=== PATIENT | male | born 1975 | race Caucasian/White ===

== ENCOUNTER → 2017-11-25 11:33 | Outpatient (CLI) | payer BC, SELFPAY ==
--- NOTE | 2017-11-25 11:44 | MR_ITS ---
MR head/brain wo con HISTORY: Left-sided arm and facial tingling and numbness with facial drooping ITS.REASON: TRANSIENT CEREBRAL ISCHEMIA, UNSPECIFIED TYPE ORDERING PHYSICIAN: Livier Vargas PATIENT AGE: 42 years COMPARISON: None TECHNIQUE: Standard multiplanar multiecho sequences are performed without contrast. FINDINGS: No midline shift, mass effect, hydrocephalus, or acute intra or extra-axial hemorrhage apparent. There is a small area of increased diffusion signal in the right frontal parietal junction within the cortex consistent with a small area of acute infarction. This is hyperintense on the diffusion weighted images and slightly hypointense on the ADC images. No significant surrounding edema or midline shift. This area measures approximately 4 mm. The chavis-white matter differentiation is unremarkable. The cerebellopontine angles, cerebellum, and brainstem are unremarkable. There is a small amount fluid in left mastoid sinus. IMPRESSION: 1. Small cortical infarction involves the right frontoparietal junction. 2. Left mastoid sinus disease. 3. Otherwise negative MRI of the brain.
== END ==
PROVIDERS: Family Provider Family Medicine; PCP Nurse Practitioner; Visit Provider Nurse Practitioner
DX: G45.9 Transient cerebral ischemic attack, unspecified (principal)
CPT/HCPCS: 70551

== ENCOUNTER → 2017-11-29 08:43 | Outpatient (CLI) | payer BC, SELFPAY ==
--- NOTE | 2017-11-29 08:55 | CI_ITS ---
Cerebrovascular Exam Indications: 435.9 Unspecified transient cerebral ischemia. IMPRESSIONS 1. The bilateral vertebral arteries are patent with normal antegrade flow. 2. Study suggests less than 20% stenosis involving the right internal carotid artery and the left internal carotid artery. History: Risk factors: Current tobacco use. Hyperlipidemia. Carotid duplex study. Complete study and Doppler flow study including spectral analysis, color and chavis scale imaging. Height: Height: 188cm. Height: 74in. Weight: Weight: 102.1kg. Weight: 224.5lb. Body mass index: BMI: 28.9kg/m^2. Body surface area: BSA: 2.33m^2. Location: Vascular laboratory. Patient status: Outpatient. Tables: Arterial flow: + +--------+--------+ Location V sys V ed + +--------+--------+ Right CCA - proximal 99.8cm/s 29.1cm/s + +--------+--------+ Right CCA - distal 76.2cm/s 26.7cm/s + +--------+--------+ Right ECA 87.2cm/s -------- + +--------+--------+ Right ICA - proximal 70.7cm/s 28.3cm/s + +--------+--------+ Right ICA - mid 88cm/s 40.1cm/s + +--------+--------+ Right ICA - distal 85.6cm/s 36.9cm/s + +--------+--------+ Right vertebral 50.3cm/s -------- + +--------+--------+ Left CCA - proximal 104cm/s 38.5cm/s + +--------+--------+ Left CCA - distal 81.7cm/s 33.8cm/s + +--------+--------+ Left ECA 119cm/s -------- + +--------+--------+ Left ICA - proximal 83.3cm/s 26.7cm/s + +--------+--------+ Left ICA - mid 81.7cm/s 33.8cm/s + +--------+--------+ Left ICA - distal 87.2cm/s 41.6cm/s + +--------+--------+ Left vertebral 33.8cm/s -------- + +--------+--------+ Velocity ratios: + + + + + + Right, V sys Right, V ed Left, V sys Left, V ed + + + + + + Max ICA/dist CCA 1.15 1.5 1.07 1.23 + + + + + + (Report amended ) Electronically signed by: Aaron Gross [id number]
--- NOTE | 2017-11-29 09:00 | CA_ITS ---
PROCEDURE: 2-D M-mode and color Doppler study INDICATIONS FOR THE TEST: Chest pain COPD Heart Murmur Tobacco Smoking Palpitations Fatigue Syncope Edema Hypertension Diabetes Mellitus Rheumatic Fever SOB MCLEAN Obesity HyperlipidemiaX Family History HD Additional History TIA PATIENT INFORMATION HEIGHT: 74 WEIGHT:225 GENDER: Male B/P:110/70 2-D/M-MODE INTERPRETATION: 2-D MEASUREMENTS OBSERVED VALUES IN CMS Right Ventricular Dimension (RVDd) 3.1 Interventricular Septum (Thickness)(IVsd) .9 Left Ventricular Internal Dimensions(LVIDd) 4.9 Left Ventricular Posterior Wall (Thickness)(LVPWd) .9 Aortic Root 2.9 Aortic Cusp Separation 2.1 Left Atrial Dimensions (LAD) 4.1 2D 1. Left atrium is normal size, left ventricle is normal size, there is preserved left ventricular systolic function, visually estimated ejection fraction 55% with no obvious regional wall motion abnormality. 2. The right atrium and right ventricle are normal size and contractility. 3. The aortic valve is minimally thickened and fibrosed. 4. The mitral and tricuspid valve are structurally normal. 5. The pulmonic valve is poorly visualized. 6. No significant pericardial effusion noted. DOPPLER INTERROGATION: Doppler interrogation of the aortic, mitral and tricuspid valvular presence of mild mitral and tricuspid regurgitation, tricuspid and jet velocity insufficient for calculation of the right ventricular systolic pressure, diastolic parameters are within normal range. CONCLUSION: 1. Normal left ventricular size, preserved left ventricular systolic function, visually estimated ejection fraction 55% with no obvious regional wall motion abnormality, diastolic parameters are within normal range. 2. Mild mitral and tricuspid regurgitation 3. No significant pericardial effusion noted.
== END ==
PROVIDERS: Family Provider Family Medicine; PCP Nurse Practitioner; Visit Provider Nurse Practitioner
DX: R07.9 Chest pain, unspecified (principal); G45.9 Transient cerebral ischemic attack, unspecified
CPT/HCPCS: 93306; 93880

== ENCOUNTER → 2018-08-18 10:03 | Outpatient (CLI) | payer BC, SELFPAY ==
--- NOTE | 2018-08-18 10:08 | FL_ITS ---
FL upper GI w air HISTORY: ITS.REASON: DYSPHAGIA ORDERING PHYSICIAN: Livier Vargas PATIENT AGE: 43 years Comparison: None FINDINGS: Contour deformity involves the posterior wall of the distal esophagus abdomen and undulated appearance with questionable mucosal irregularity and possible minimal ulceration. The stomach and duodenum have an unremarkable appearance. No evidence of hiatal hernia. There is normal peristalsis. The duodenal C-loop is nondisplaced. FLUOROSCOPY TIME : 2 minutes and 9 seconds. IMPRESSION: 1. Lobular contour defect along the posterior aspect of the distal esophagus with questionable mucosal irregularity. Cannot exclude a lesion here. Consider upper endoscopy for further evaluation. There may be some minimal ulceration here. 2. Otherwise negative upper GI
== END ==
PROVIDERS: PCP Nurse Practitioner; Visit Provider Nurse Practitioner
DX: R13.10 Dysphagia, unspecified (principal)
CPT/HCPCS: 74247

== ENCOUNTER 2022-02-05 19:39 | Emergency (ER) | payer BC, SELFPAY ==
--- NOTE | 2022-02-05 20:16 | XR_ITS ---
PROCEDURE INFORMATION: Exam: XR Left Knee Exam date and time: 02/05/2022 8:22 PM Age: 46 years old Clinical indication: Pain; Knee; Left; Additional info: Injury TECHNIQUE: Imaging protocol: XR Left knee. Views: 3 views. COMPARISON: No relevant prior studies available. FINDINGS: Bones/joints: Normal. No acute fracture or dislocation. Soft tissues: Prepatellar soft tissue swelling. IMPRESSION: Prepatellar soft tissue swelling. No underlying acute fracture or dislocation.
[2022-02-05 21:00] VITALS: BP 111/67; PULSE 97; RESP 21; TEMP 36.9; O2SAT 96; BMI 30.8
--- NOTE | 2022-02-05 21:25 | HMH.EDUTC ---
[facility] [place] Disposition Clinical Impression: Cellulitis Qualifiers: Site of cellulitis: unspecified site Qualified Code(s): L03.90 - Cellulitis, unspecified Disposition: Home, Self-Care Condition on Discharge: Good Instructions: Trimethoprim/Sulfamethoxazole (Alternative Therapy), Cellulitis, Cephalexin, Mupirocin Additional Instructions: *Start antibiotic(s) immediately and be sure to take as ordered for the FULL length of time although you may be feeling better or start to see improvement in the next 24-48 hours *Monitor closely. Outlined redness so that you can monitor easier. Follow up immediately for new or worsening symptoms including but not limited to redness, swelling, streaking from site fever or chills. *Warm compress 15 minutes 3-4 times day *Never squeeze or pop these on your own. Seek immediate medical attention next time this occurs *Monitor Temp. Tylenol every 4 hours as needed and ibuprofen every 6 hours as needed (as long as your primary care doctor has told you that it is ok to take both. For fever, aches, pain. ER if no less that 101 despite Tylenol and ibuprofen Follow up with your family doctor/primary care physician in the next 48-72 hours if no improvement Follow up immediately if redness continues to spread Prescriptions: Sulfamethoxazole/Trimethoprim [Bactrim DS tablet] 1 each PO BID 10 Days #20 tab Transmission Status: Pending to [facility] cephALEXin [cephALEXin 500mg capsule*] 500 mg PO QID 10 Days #40 cap Transmission Status: Pending to [facility] Mupirocin Calcium [Mupirocin 2% Cream 15gm] 1 applicatio TP BID 10 Days #15 gm Transmission Status: Pending to [facility] Referrals: Eliecer Merritt MD [Primary Care Provider] - As needed Time of Disposition: 21:33 Medical Decision Making - Blade Inquiry Pt receiving controlled substance: No Blade was queried for this patient: No Vital Signs: 02/05/22 21:00 Temperature 98.5 F Temperature Source Oral Pulse Rate [Left Brachial] 97 H Respiratory Rate 21 Blood Pressure [Left Arm] 111/67 Blood Pressure Mean [Left Arm] 81 Blood Pressure Source [Left Arm] Automatic Cuff Blood Pressure Position [Left Arm] Sitting 02 Sat by Pulse Oximetry 96 Oxygen Delivery Method Room Air Orders (Tests/Meds): ED MEDICATIONS Discontinued Medications Generic Name Dose Route Start Last Admin Trade Name Justyn PRN Reason Stop Dose Admin Cephalexin HCl 500 mg 02/05/22 21:31 Cephalexin 500mg Capsule PO 02/05/22 21:32 ONCE ONE Trimethoprim/Sulfamethoxazole 1 each 02/05/22 21:31 Sulfa/Trimethoprim 1 Tablet PO 02/05/22 21:32 ONCE ONE Medical Decision Narrative: Discussed with patient and recommended transfer to the ED for further work up and evaluation and patient declined State that he wanted to try antibiotics and he would follow up immediately if no improvement or go straight to ER area marked and patient verbalized understanding of strict return recommendations [facility] [place] HPI - General Stated complaint: Left knee pain swollen Time Seen by Provider: 02/05/22 21:15 Mode of Arrival: Ambulatory Source of Information: Patient Limitations: No Limitations Description of Symptoms (Recalled from Triage Doc. by RN): PATIENT C/O REDNESS AND PAIN TO LEFT KNEE. HE STATES HE POSSIBLY GOT BIT BY SOMETHING HEENT Symptoms (Recalled from RN notes): No Resp Symptoms (Recalled from RN notes): No Skin Symptoms (Recalled from RN notes): Yes MS Symptoms (Recalled from RN notes): No Functional Status (Recalled from RN notes): WNL - History of Present Illness Provider Complaint: Patient states that he thought he got bite by something on his left knee and had a pimple like area there and he tried to pop it State that since then he has been having redness and warmth and the redness is starting to spread State that he has continued to try to mash it to get stuff out and told him he needed to come and get some ant
[2022-02-05 21:33] VITALS: BP 111/67; PULSE 97; RESP 21; TEMP 36.9; O2SAT 96
== END 2022-02-05 21:40 | disposition home or self-care (01) ==
PROVIDERS: Emergency Provider Nurse Practitioner; PCP Family Medicine
DX: L03.116 Cellulitis of left lower limb (principal)
CPT/HCPCS: 73562; 99212; G0463

== ENCOUNTER 2023-01-03 10:12 | Emergency (ER) | payer BC, SELFPAY ==
[2023-01-03 10:20] VITALS: BP 123/71; PULSE 87; RESP 18; TEMP 36.7; O2SAT 96; BMI 30.2
--- NOTE | 2023-01-03 10:31 | EXP.UTC ---
Discharge Plan Disposition Patient Disposition: Home, Self-Care Condition: Good Prescriptions Prescriptions: New gentamicin 0.3 % drops 1 - 2 drp ophthalmic (eye) Q4H 7 Days Qty: 5 0RF Rx Instructions: in right eye as directed azithromycin [Zithromax Z-Haris] 250 mg tablet See Rx Instructions .ROUTE .COMPLEX 5 Days Qty: 6 0RF Rx Instructions: For 250 mg dose pack: take 500 mg today (day 1), then 250 mg for 4 days (days 2-5) benzonatate 100 mg capsule 100 mg PO TID PRN (Reason: cough) Qty: 30 0RF methylprednisolone [Medrol (Haris)] 4 mg tablets,dose pack See Rx Instructions .Route .COMPLEX 6 Days Qty: 21 0RF Rx Instructions: taper pack; No Action sulfamethoxazole-trimethoprim 1 EACH tablet 1 each PO BID 10 Days Qty: 20 0RF cephalexin 500 MG capsule 500 mg PO QID 10 Days Qty: 40 0RF mupirocin calcium 15 GM cream 1 applicatio TP BID 10 Days Qty: 15 0RF Referrals Follow up/Referrals: Eliecer Merritt MD [Primary Care Provider] - See instructions Activity Restrictions/Add. Instructions Additional Instructions/Restrictions: *Monitor Temp, Over the counter Motrin or Tylenol as directed/as needed Tylenol every 4 hours and Motrin every 6 hours (as long as your family doctor has told you that you can take it) for fever or pain. and straight to ER if unable to lower temp less than 101.0 after medication given *Warm salt water gargles may help to soothe the throat *Throat Lozenges? *Warm fluids like tea with honey may help to soothe the throat? *Sleep elevated *Humidifier/Vaporizer Follow up with your Eye Doctor if no improvement or any worsening of symptoms Your throat swab was sent for culture. Those results are typically sent to your primary care. Be sure to follow up in 2-3 days with your family doctor/primary care physician if no improvement so they can review those result and treat if necessary. If you don?t have a primary care doctor, I recommend you get one but in the mean time, you will have to return to a walk in clinic Follow up IMMEDIATELY for new or worsening symptoms or no Noticeable improvement over the next 48-72 hours. 911 for difficulty breathing or swallowing Clinical Impressions Clinical Impression: Sinusitis Instructions Patient Instructions: DI for Sinusitis, Sinusitis, Conjunctivitis, DI for Conjunctivitis Discharge ED Provider: Maryann Morse [facility] [place] HPI General Stated complaint: right eye swollen shut,sinus pain Time Seen by Provider: 01/03/23 10:31 History of Present Illness Provider Complaint: Patient states that he has been having sinus pain and pressure and cannot breath out of his nose for close to a week worse in the last couple of days, headache, sore throat and feeling achy all over x 2 days States that pink eye is going around at work States that this morning he woke up with his right eye matted together and draining thick yellowish colored mucous and feeling worse so he came in to get checked Related Data Previous Rx's Medication Instructions Recorded cephalexin 500 mg capsule 500 mg PO QID 10 days #40 caps 02/05/22 mupirocin calcium 2 % topical cream 1 applicatio TP BID 10 days ##15 02/05/22 sulfamethoxazole 800 1 each PO BID 10 days #20 tabs 02/05/22 mg-trimethoprim 160 mg tablet azithromycin 250 mg tablet See Rx Instructions PO .COMPLEX 5 01/03/23 (Zithromax Z-Haris) days #6 tabs benzonatate 100 mg capsule 100 mg PO TID PRN cough #30 caps 01/03/23 gentamicin 0.3 % eye drops 1 - 2 drp ophthalmic (eye) Q4H 7 01/03/23 days #5 mL methylprednisolone 4 mg tablets in See Rx Instructions .Route 01/03/23 a dose pack (Medrol (Haris)) .COMPLEX 6 days #21 tabs Allergies Allergy/AdvReac Type Severity Reaction Status Date / Time No Known Allergies Allergy Verified 02/05/22 21:14 [facility] Disclaimer: The information contained in this section may have been updated after the patient was seen, as this informa
[2023-01-03 10:52] LABS: UTC Strep Screen (Rapid) Negative (Negative)
[2023-01-03 10:53] LABS: UTC Influenza A Antigen Negative (Negative); UTC Influenza B Antigen Negative (Negative)
[2023-01-03 10:58] VITALS: BP 123/71; PULSE 87; RESP 18; TEMP 36.7; O2SAT 96
== END 2023-01-03 11:02 | disposition home or self-care (01) ==
PROVIDERS: Emergency Provider Nurse Practitioner; PCP Family Medicine
DX: J01.90 Acute sinusitis, unspecified (principal); H10.31 Unspecified acute conjunctivitis, right eye
CPT/HCPCS: 87804; 87880; 99212; 99214; G0463